=== PATIENT | male | born 1995 | race Caucasian/White ===

== ENCOUNTER 2016-06-22 17:00 | Inpatient (IN) | payer MEDICAID ==
[~2016-06-22 17:00] MED LIST: DEPAKOTE ER500 M1 PO; RISPERDAL1 M2 PO; ZOLOFT100 M1 PO
[2016-06-22] MEDS ORDERED: . (17:24)
[2016-06-23 06:06] LABS: AMYLASE 36 U/L (20-90); LIPASE 47 U/L (73-393)
[2016-06-24 05:38] LABS: BASO % 0.4 % (0-2); EOS % 2.1 % (0-7); EOSINOPHIL ABSOLUTE COUNT 0.2 tho/cmm (0.0-0.7); HCT-HEMATOCRIT 27.3 % (36.0-53.5); LYMPH % 31.9 % (20-45); LYMPH ABSOLUTE COUNT 2.3 tho/cmm (0.8-4.5); MCH (MEAN CORPUSCULAR HGB) 20.5 pg (28.0-32.0); MCHC MEAN CORPUSCULAR HGB CONC 29.3 % (32.0-36.0); MEAN PLATELET VOLUME 9.2 cmc (9.4-12.4); MONO % 8.3 % (0-12); MONOCYTE ABSOLUTE COUNT 0.6 tho/cmm (0.0-1.2); NEUTROPHIL ABSOLUTE COUNT 4.2 tho/cmm (1.6-8.0); NEUTROPHIL-AUTOMATED 4.2 tho/cmm (1.6-8.0); NEUTROPHILS % 57.3 % (40-80); PLATELET COUNT 490 tho/cmm (150-450); WHITE BLOOD COUNT 7.3 tho/cmm (4.0-10.0)
[2016-06-24 05:39] LABS: INR 1.2 INR (0.9-1.1); PROTHROMBIN TIME 13.4 SECONDS (9.0-13.6)
[2016-06-24 05:48] LABS: ANION GAP 11 mmol/L (0-20); BLOOD UREA NITROGEN 14 mg/dl (6-24); CALCIUM 8.1 mg/dl (8.5-10.5); CARBON DIOXIDE-VENOUS 25 mmol/L (22-32); CHLORIDE 112 mmol/l (96-110); CREATININE 0.61 mg/dl (0.60-1.30); GLUCOSE 97 mg/dL (70-110); POTASSIUM 3.9 mmol/L (3.7-5.1); SODIUM 144 mmol/L (135-145); eGFR VALUE FOR BLACK >90 mL/Min
[2016-06-25 05:51] LABS: ALBUMIN 2.1 g/dl (3.5-5.0); ANION GAP 13 mmol/L (0-20); BLOOD UREA NITROGEN 6 mg/dl (6-24); CALCIUM 8.1 mg/dl (8.5-10.5); CARBON DIOXIDE-VENOUS 25 mmol/L (22-32); CHLORIDE 113 mmol/l (96-110); GLUCOSE 115 mg/dL (70-110); POTASSIUM 3.8 mmol/L (3.7-5.1); SODIUM 147 mmol/L (135-145)
[2016-06-25 05:53] LABS: BASO % 0.1 % (0-2); HCT-HEMATOCRIT 27.5 % (36.0-53.5); IMMATURE GRANULOCYTES ABSOLUTE 0.02 tho/cmm (0-0.03); IMMATURE GRANULOCYTES PERCENT 0.2 % (0-0.3); LYMPH ABSOLUTE COUNT 1.2 tho/cmm (0.8-4.5); MCH (MEAN CORPUSCULAR HGB) 20.5 pg (28.0-32.0); MCHC MEAN CORPUSCULAR HGB CONC 29.1 % (32.0-36.0); MCV (MEAN CELL VOLUME) 70.5 fl (82.0-96.0); MEAN PLATELET VOLUME 9.2 cmc (9.4-12.4); MONO % 6.9 % (0-12); MONOCYTE ABSOLUTE COUNT 0.7 tho/cmm (0.0-1.2); NEUTROPHIL ABSOLUTE COUNT 7.5 tho/cmm (1.6-8.0); NEUTROPHIL-AUTOMATED 7.5 tho/cmm (1.6-8.0); NEUTROPHILS % 79.8 % (40-80); PLATELET COUNT 511 tho/cmm (150-450); RED CELL DISTRIBUTION WIDTH 16.4 % (12.4-16.4); WHITE BLOOD COUNT 9.4 tho/cmm (4.0-10.0)
[2016-06-25 05:54] LABS: ALB/GLOB RATIO 0.5 (0.8-2.0); ALKALINE PHOSPHATASE 104 U/L (33-138); ALT/SGPT 18 U/L (12-78); AST/SGOT 19 U/L (10-40); BILIRUBIN,TOTAL 0.2 mg/dl (0.0-1.5); CREATININE 0.58 mg/dl (0.60-1.30); eGFR VALUE FOR BLACK >90 mL/Min
[2016-06-25] MEDS ORDERED: AMITIZA24 MC1 PO (20:26)
[2016-06-25] MEDS ORDERED: CITRATE OF MAG300 M1 PO (20:27)
[2016-06-26] MEDS ORDERED: COLACE100 M1 PO (14:19)
== END 2016-06-25 20:45 | DRG 418 ==
LOC: CAR1 17:00 → ORW 06-24 09:26 → PACU 06-24 10:49 → CAR1 06-24 11:15 → 5WE 06-25 11:40
PROVIDERS: Family Medicine; Internal Medicine; Nurse Practitioner; ADMIT Internal Medicine
PROC: 0FT44ZZ Resection of Gallbladder, Percutaneous Endoscopic Approach (ICD-10-PCS; principal; 2016-06-24)
PROC: 0DBP8ZX Excision of Rectum, Via Natural or Artificial Opening Endoscopic, Diagnostic (ICD-10-PCS; 2016-06-25)
DX: K82.8 Other specified diseases of gallbladder (principal); K56.69 Other intestinal obstruction; F31.9 Bipolar disorder, unspecified; D50.9 Iron deficiency anemia, unspecified; F17.210 Nicotine dependence, cigarettes, uncomplicated; F12.90 Cannabis use, unspecified, uncomplicated; N32.3 Diverticulum of bladder; F90.9 Attention-deficit hyperactivity disorder, unspecified type; F91.3 Oppositional defiant disorder; R63.4 Abnormal weight loss; Z68.21 Body mass index [BMI] 21.0-21.9, adult
CPT/HCPCS: A9537; J0690; J2060; J2270; J2405; J7030; Q9958

== ENCOUNTER 2016-06-29 10:45 | Inpatient (IN) | payer MEDICAID ==
[~2016-06-29 10:45] MED LIST changes: +.; +AMITIZA24 MC1 PO; +CITRATE OF MAG300 M1 PO; +COLACE100 M1 PO
[2016-06-29 13:07] LABS: ANION GAP 11 mmol/L (0-20); BLOOD UREA NITROGEN 6 mg/dl (6-24); CALCIUM 8.5 mg/dl (8.5-10.5); CARBON DIOXIDE-VENOUS 27 mmol/L (22-32); CHLORIDE 107 mmol/l (96-110); CREATININE 0.68 mg/dl (0.60-1.30); GLUCOSE 89 mg/dL (70-110); POTASSIUM 4.2 mmol/L (3.7-5.1); SODIUM 141 mmol/L (135-145); eGFR VALUE FOR BLACK >90 mL/Min
[2016-06-29 13:41] LABS: BASO % 0.4 % (0-2); EOSINOPHIL ABSOLUTE COUNT 0.2 tho/cmm (0.0-0.7); HCT-HEMATOCRIT 30.6 % (36.0-53.5); IMMATURE GRANULOCYTES ABSOLUTE 0.02 tho/cmm (0-0.03); IMMATURE GRANULOCYTES PERCENT 0.3 % (0-0.3); LYMPH % 23.9 % (20-45); LYMPH ABSOLUTE COUNT 1.8 tho/cmm (0.8-4.5); MCH (MEAN CORPUSCULAR HGB) 20.5 pg (28.0-32.0); MCHC MEAN CORPUSCULAR HGB CONC 29.4 % (32.0-36.0); MCV (MEAN CELL VOLUME) 69.7 fl (82.0-96.0); MEAN PLATELET VOLUME 9.2 cmc (9.4-12.4); MONO % 6.1 % (0-12); MONOCYTE ABSOLUTE COUNT 0.5 tho/cmm (0.0-1.2); NEUTROPHILS % 67.3 % (40-80); PLATELET COUNT 495 tho/cmm (150-450); RED BLOOD COUNT 4.39 mil/cmm (4.40-5.70); RED CELL DISTRIBUTION WIDTH 15.8 % (12.4-16.4); WHITE BLOOD COUNT 7.4 tho/cmm (4.0-10.0)
[2016-06-30 05:45] LABS: BASO % 0.1 % (0-2); EOS % 0.1 % (0-7); HCT-HEMATOCRIT 31.6 % (36.0-53.5); HGB-HEMOGLOBIN 9.3 gm/dl (13.5-17.0); IMMATURE GRANULOCYTES ABSOLUTE 0.03 tho/cmm (0-0.03); IMMATURE GRANULOCYTES PERCENT 0.2 % (0-0.3); LYMPH % 11.7 % (20-45); LYMPH ABSOLUTE COUNT 1.5 tho/cmm (0.8-4.5); MCH (MEAN CORPUSCULAR HGB) 20.3 pg (28.0-32.0); MCHC MEAN CORPUSCULAR HGB CONC 29.4 % (32.0-36.0); MCV (MEAN CELL VOLUME) 68.8 fl (82.0-96.0); MEAN PLATELET VOLUME 8.7 cmc (9.4-12.4); MONO % 7.4 % (0-12); NEUTROPHIL ABSOLUTE COUNT 10.6 tho/cmm (1.6-8.0); NEUTROPHIL-AUTOMATED 10.6 tho/cmm (1.6-8.0); NEUTROPHILS % 80.5 % (40-80); PLATELET COUNT 547 tho/cmm (150-450); RED BLOOD COUNT 4.59 mil/cmm (4.40-5.70); RED CELL DISTRIBUTION WIDTH 15.6 % (12.4-16.4)
[2016-06-30 06:00] LABS: ALB/GLOB RATIO 0.6 (0.8-2.0); ALBUMIN 2.2 g/dl (3.5-5.0); ALKALINE PHOSPHATASE 102 U/L (33-138); ALT/SGPT 13 U/L (12-78); ANION GAP 12 mmol/L (0-20); AST/SGOT 11 U/L (10-40); BILIRUBIN,TOTAL 0.4 mg/dl (0.0-1.5); BLOOD UREA NITROGEN 6 mg/dl (6-24); CALCIUM 8.1 mg/dl (8.5-10.5); CARBON DIOXIDE-VENOUS 25 mmol/L (22-32); CHLORIDE 104 mmol/l (96-110); CREATININE 0.56 mg/dl (0.60-1.30); GLUCOSE 105 mg/dL (70-110); POTASSIUM 4.7 mmol/L (3.7-5.1); SODIUM 136 mmol/L (135-145); eGFR VALUE FOR BLACK >90 mL/Min
[2016-06-30 06:10] LABS: WHITE BLOOD COUNT 13.2 tho/cmm (4.0-10.0)
--- NOTE | 2016-06-30 11:31 | NUR ---
VN ROUNDING-VISITED WITH PATIENT PER NURSE REQUEST REGARDING ENCOURAGING PT TO USE THE HEALTHCARE REPRESENTATIVE MORE OFTEN HE IS COMPLAINING THAT HIS PAIN IS NOT CONTROLLED WITH MEDIATION, BUT THE MACHINE IS NOT INDICATING THAT HE IS USING IT MUCH HE CAN. PATIENT VERBALIZED UNDERSTANDING BUT A LITTLE DEFIANT IN JUST NOT WANTING TO PUSH BUTTON,ETC AND SAYS HE GIVES UP. EXPLAINED TO GRANDMOTHER ALSO TO NOT PUSH THE BUTTON FOR HIM PATIENT NEEDS TO BE AWAKE ENOUGH TO PUSH THE BUTTON HIMSELF. REVIEWED WITH ROSLYN THE NURSE AND TO ASK LYLA WHEN HE ROUNDS ON IF WE CAN GET TORADOL ALSO.
[2016-07-01 05:23] LABS: HGB-HEMOGLOBIN 9.1 gm/dl (13.5-17.0); PLATELET COUNT 465 tho/cmm (150-450)
--- NOTE | 2016-07-01 21:32 | NUR ---
VIRTUAL CARE NOTE: ASSESSMENT DEFERRED. PT. SLEEPING.
--- NOTE | 2016-07-02 18:36 | NUR ---
VIRTAUL CARE NOTE: ASSESMENT DEFERRED. PT. SLEEPING.
[2016-07-03 05:18] LABS: BASO % 0.4 % (0-2); EOS % 3.7 % (0-7); EOSINOPHIL ABSOLUTE COUNT 0.3 tho/cmm (0.0-0.7); HGB-HEMOGLOBIN 9.1 gm/dl (13.5-17.0); IMMATURE GRANULOCYTES ABSOLUTE 0.02 tho/cmm (0-0.03); IMMATURE GRANULOCYTES PERCENT 0.2 % (0-0.3); LYMPH % 19.2 % (20-45); LYMPH ABSOLUTE COUNT 1.6 tho/cmm (0.8-4.5); MCH (MEAN CORPUSCULAR HGB) 20.4 pg (28.0-32.0); MCHC MEAN CORPUSCULAR HGB CONC 30.3 % (32.0-36.0); MCV (MEAN CELL VOLUME) 67.4 fl (82.0-96.0); MEAN PLATELET VOLUME 8.7 cmc (9.4-12.4); MONO % 8.5 % (0-12); MONOCYTE ABSOLUTE COUNT 0.7 tho/cmm (0.0-1.2); NEUTROPHIL ABSOLUTE COUNT 5.7 tho/cmm (1.6-8.0); NEUTROPHIL-AUTOMATED 5.7 tho/cmm (1.6-8.0); PLATELET COUNT 498 tho/cmm (150-450); RED BLOOD COUNT 4.45 mil/cmm (4.40-5.70); RED CELL DISTRIBUTION WIDTH 15.6 % (12.4-16.4); WHITE BLOOD COUNT 8.4 tho/cmm (4.0-10.0)
[2016-07-03 05:34] LABS: ANION GAP 13 mmol/L (0-20); BLOOD UREA NITROGEN 11 mg/dl (6-24); CALCIUM 8.7 mg/dl (8.5-10.5); CARBON DIOXIDE-VENOUS 26 mmol/L (22-32); CHLORIDE 101 mmol/l (96-110); CREATININE 0.54 mg/dl (0.60-1.30); GLUCOSE 97 mg/dL (70-110); POTASSIUM 4.1 mmol/L (3.7-5.1); SODIUM 136 mmol/L (135-145); eGFR VALUE FOR BLACK >90 mL/Min
[2016-07-04] MEDS ORDERED: ULTRAM50 M1 PO (11:07)
== END 2016-07-04 11:45 | DRG 330 ==
LOC: SHSA 10:45 → ORW 14:41 → PACU 17:52 → 5WD 19:20
PROVIDERS: Nurse Practitioner; ADMIT Surgery
PROC: 0DTN0ZZ Resection of Sigmoid Colon, Open Approach (ICD-10-PCS; principal; 2016-06-29)
PROC: 0DBP0ZZ Excision of Rectum, Open Approach (ICD-10-PCS; 2016-06-29)
PROC: 0W9G4ZZ Drainage of Peritoneal Cavity, Percutaneous Endoscopic Approach (ICD-10-PCS; 2016-06-29)
DX: K56.69 Other intestinal obstruction (principal); R18.8 Other ascites; F31.9 Bipolar disorder, unspecified; F90.9 Attention-deficit hyperactivity disorder, unspecified type; F91.3 Oppositional defiant disorder
CPT/HCPCS: J0131; J1170; J1335; J1650; J1885; J2795; J3010; J7030

== ENCOUNTER 2016-07-06 00:43 | Day surgery (SDC) | payer MEDICAID ==
[~2016-07-06 00:43] MED LIST changes: +ULTRAM50 M1 PO
[2016-07-06 01:10] LABS: ABG CO2 ARTERIAL 17 mmol/L (21-27); ARTERIAL BLD GAS O2 SATURATION 92 % (95-98); ARTERIAL BLOOD GAS PCO2 28 mmHg (32-45); ARTERIAL PO2 73 mmHg (70-100); BICARBONATE 16 mmol/L (21-28); BLOOD GAS BASE EXCESS -7 mM/L (-/+3); PH 7.39 Units (7.35-7.45)
[2016-07-06 01:28] LABS: HCT-HEMATOCRIT 31.8 % (36.0-53.5); HGB-HEMOGLOBIN 9.8 gm/dl (13.5-17.0); MCH (MEAN CORPUSCULAR HGB) 20.5 pg (28.0-32.0); MCHC MEAN CORPUSCULAR HGB CONC 30.8 % (32.0-36.0); MCV (MEAN CELL VOLUME) 66.4 fl (82.0-96.0); NEUTROPHIL-AUTOMATED 5.4 tho/cmm (1.6-8.0); PLATELET COUNT 516 tho/cmm (150-450); RED BLOOD COUNT 4.79 mil/cmm (4.40-5.70); RED CELL DISTRIBUTION WIDTH 15.3 % (12.4-16.4); WHITE BLOOD COUNT 6.7 tho/cmm (4.0-10.0)
[2016-07-06] MEDS ORDERED: ACID REDUCER75 M1 PO (01:36)
[2016-07-06] MEDS ORDERED: DULCOLAX10 MG PR (01:36)
[2016-07-06] MEDS ORDERED: MIRALAX17 G2 PO (01:37)
[2016-07-06 02:11] LABS: INR 1.7 INR (0.9-1.1); PROTHROMBIN TIME 20.6 SECONDS (9.0-13.6)
[2016-07-06 02:34] LABS: BAND % 48 % (0-20); BAND ABSOLUTE COUNT 3.2 tho/cmm (0-2.0); PLATELET MORPHOLOGY MACRO
[2016-07-06 02:40] LABS: ALB/GLOB RATIO 0.5 (0.8-2.0); ALBUMIN 1.6 g/dl (3.5-5.0); ALKALINE PHOSPHATASE 115 U/L (33-138); ALT/SGPT 42 U/L (12-78); ANION GAP 24 mmol/L (0-20); AST/SGOT 41 U/L (10-40); BILIRUBIN,TOTAL 0.7 mg/dl (0.0-1.5); BLOOD UREA NITROGEN 36 mg/dl (6-24); CALCIUM 7.4 mg/dl (8.5-10.5); CARBON DIOXIDE-VENOUS 17 mmol/L (22-32); CHLORIDE 95 mmol/l (96-110); GLUCOSE 82 mg/dL (70-110); LIPASE 28 U/L (73-393); POTASSIUM 5.5 mmol/L (3.7-5.1); SODIUM 130 mmol/L (135-145); eGFR VALUE FOR BLACK 50 mL/Min
[2016-07-06 02:58] LABS: ABG CO2 ARTERIAL 17 mmol/L (21-27); ARTERIAL BLOOD GAS PCO2 43 mmHg (32-45); ARTERIAL PO2 65 mmHg (70-100); BICARBONATE 16 mmol/L (21-28); BLOOD GAS BASE EXCESS -11 mM/L (-/+3); GLUCOSE 96 mg/dl (65-120); HGB-HEMOGLOBIN 7.8 gm/dl (13.5-17.0); PH 7.19 Units (7.35-7.45); POTASSIUM 5.5 mmol/L (3.5-5.3); SODIUM 126 mmol/L (135-146)
[2016-07-06 02:59] LABS: ARTERIAL BLD GAS O2 SATURATION 82 % (95-98)
[2016-07-06 03:01] LABS: PROCALCITONIN 97.31 ng/ml (0.05-0.09)
[2016-07-06 03:47] LABS: BLOOD GAS BASE EXCESS -23 mM/L (-/+3); SODIUM 130 mmol/L (135-146)
[2016-07-06 03:48] LABS: BASO % 0.2 % (0-2); EOS % 0.4 % (0-7); IMMATURE GRANULOCYTES ABSOLUTE 0.07 tho/cmm (0-0.03); IMMATURE GRANULOCYTES PERCENT 1.4 % (0-0.3); LYMPH % 50.1 % (20-45); LYMPH ABSOLUTE COUNT 2.5 tho/cmm (0.8-4.5); MEAN PLATELET VOLUME 9.3 cmc (9.4-12.4); MONO % 3.6 % (0-12); MONOCYTE ABSOLUTE COUNT 0.2 tho/cmm (0.0-1.2); NEUTROPHIL ABSOLUTE COUNT 2.2 tho/cmm (1.6-8.0); NEUTROPHIL-AUTOMATED 2.2 tho/cmm (1.6-8.0); NEUTROPHILS % 44.3 % (40-80); RED BLOOD COUNT 2.74 mil/cmm (4.40-5.70); RED CELL DISTRIBUTION WIDTH 19.1 % (12.4-16.4)
[2016-07-06 03:49] LABS: HGB-HEMOGLOBIN 6.2 gm/dl (13.5-17.0)
[2016-07-06 03:50] LABS: ABG CO2 ARTERIAL 12 mmol/L (21-27); ARTERIAL BLD GAS O2 SATURATION 13 % (95-98); ARTERIAL BLOOD GAS PCO2 69 mmHg (32-45); ARTERIAL PO2 22 mmHg (70-100); BICARBONATE 10 mmol/L (21-28); GLUCOSE 143 mg/dl (65-120); POTASSIUM 4.9 mmol/L (3.5-5.3)
[2016-07-06 04:14] LABS: HCT-HEMATOCRIT 20.1 % (36.0-53.5); HGB-HEMOGLOBIN 6.1 gm/dl (13.5-17.0); MCH (MEAN CORPUSCULAR HGB) 22.2 pg (28.0-32.0); MCHC MEAN CORPUSCULAR HGB CONC 30.3 % (32.0-36.0); MCV (MEAN CELL VOLUME) 73.4 fl (82.0-96.0); PLATELET COUNT 100 tho/cmm (150-450)
== END 2016-07-06 04:55 ==
LOC: EDMED 00:43 → SRG 02:39
PROVIDERS: Emergency Medicine; Surgery
PROC: 06HM33Z Insertion of Infusion Device into Right Femoral Vein, Percutaneous Approach (ICD-10-PCS; principal; 2016-07-06)
PROC: 4A033R1 Measurement of Arterial Saturation, Peripheral, Percutaneous Approach (ICD-10-PCS; 2016-07-06)
PROC: 30233N1 Transfusion of Nonautologous Red Blood Cells into Peripheral Vein, Percutaneous Approach (ICD-10-PCS; 2016-07-06)
DX: A41.9 Sepsis, unspecified organism (principal); K66.8 Other specified disorders of peritoneum; F17.210 Nicotine dependence, cigarettes, uncomplicated; Z79.899 Other long term (current) drug therapy; Z90.49 Acquired absence of other specified parts of digestive tract; Z98.890 Other specified postprocedural states
CPT/HCPCS: J0295; J1335; J7030; J7040; P9016